=== PATIENT | male | born 1970 | race Caucasian/White ===

== ENCOUNTER 2024-12-14 11:34 | Emergency (ER) | payer OTHER, SELFPAY ==
[2024-12-14 11:39] VITALS: BP 200/85; PULSE 83; RESP 16; TEMP 36.8; O2SAT 97; BMI 41.8
--- NOTE | 2024-12-14 12:08 | DI.RAD.S_ITS ---
PROCEDURE: XR CHEST 1V INDICATIONS: chest pain TECHNIQUE: One view of the chest was acquired. COMPARISON: None. FINDINGS: Surgical changes and devices: None. Lungs and pleura: Lungs are clear. No pleural effusions or pneumothorax. Mediastinum: Mediastinal contours appear normal. Heart size is normal. Bones and chest wall: No suspicious bony lesions. Overlying soft tissues appear unremarkable. IMPRESSION: No acute cardiopulmonary abnormality is seen. Approved by: Vince Moreno M.D. on 12/14/2024 at 12:30
--- NOTE | 2024-12-14 12:13 | ED_ITS ---
HPI - General Adult General Chief complaint: Diabetic Problem Stated complaint: High blood sugar Time Seen by Provider: 12/14/24 12:08 History of Present Illness HPI narrative: Patient is a 54-year-old male without known medical problems does not have a doctor presenting to day with hypertension and hyperglycemia. He is working over at the [employer] voiced that he did not feel well last night. He just felt a little bit off they checked his glucose it was 350. Today he went to work and his blood pressure was high and was sent over here. He was noted to be hypertensive with a systolic greater than 200. He denies any sort of chest pain shortness of breath nausea or vomiting. He has no fever or chills. He denies any polydipsia or polyuria, glucose in triage he was 270. He denies any tobacco use but admits to drinking 2 alcoholic beverages daily. Related Data Previous Rx's Medication Instructions Recorded lisinopril 10 mg tablet 10 mg PO DAILY #30 tabs 12/14/24 metformin 500 mg tablet 500 mg PO BID #60 tabs 12/14/24 Allergies Allergy/AdvReac Type Severity Reaction Status Date / Time Penicillins Allergy Verified 12/14/24 12:18 Exam Initial Vital Signs Initial Vital Signs: Vital Signs Temperature 98.2 F 12/14/24 11:39 Pulse Rate 83 12/14/24 11:39 Respiratory Rate 16 12/14/24 11:39 Blood Pressure 200/85 H 12/14/24 11:39 Pulse Oximetry 97 12/14/24 11:39 Oxygen Delivery Method Room Air 12/14/24 11:39 GENERAL: Awake alert well-appearing 54-year-old male and in no acute distress. HEENT: Head atraumatic,EOMI, pupils reactive, face symmetric, moist mucous membranes CARDIOVASCULAR: Regular rate and rhythm without murmurs, rubs or gallops. RESPIRATORY: Breath sounds equal bilaterally, no wheezes rales or rhonchi. ABDOMEN: Soft, nontender. Normoactive bowel sounds all 4 quadrants. No guarding or rebound. EXTREMITIES: Normal range of motion, no clubbing or edema. Neurovascularly intact NEUROLOGICAL: Alert and oriented x4.Normal gait and speech. Cranial nerves II through XII grossly intact. SKIN: Warm, dry, no laceration, no petechiae, no rashes or lesions. Course Orders Ordered: ED Orders 12/14/24 12:00 A1C [Hemoglobin A1C% w Est Avg Glu] Stat Complete Blood Count AUTO DIFF Stat Comprehensive Metabolic Panel Stat Lipase Stat Troponin & CK Cardiac Panel Stat 12/14/24 12:08 XR chest 1V Stat EKG-12 Lead Stat 12/14/24 12:32 Urine Microscopic Stat Vital Signs Vital signs: Vital Signs - 8 hr 12/14/24 11:39 12/14/24 12:29 12/14/24 12:31 Temperature 98.2 F Pulse Rate 83 Respiratory Rate 16 Blood Pressure 200/85 H 196/102 H 187/100 H Pulse Oximetry 97 Oxygen Delivery Method Room Air 12/14/24 12:32 12/14/24 13:00 12/14/24 13:00 Temperature Pulse Rate 75 69 Respiratory Rate 23 17 Blood Pressure 191/93 H Pulse Oximetry Oxygen Delivery Method Medical Decision Making Lab Data 12/14/24 12:00 12/14/24 12:00 Labs: Lab Results 12/14/24 12/14/24 Range/Units 12:00 12:32 WBC 6.0 (4.5-11.0) X10^3/uL RBC 5.14 (4.5-5.9) X10^6/uL Hgb 15.7 (13.5-17.5) g/dL Hct 45.3 (41-53) % MCV 88.2 (80-100) fL MCH 30.5 (26-34) PG MCHC 34.6 (30-36) % RDW 13.6 (11.6-14.8) % Plt Count 145 L (150-400) X10^3/uL Neut % (Auto) 56.4 (50-75) % Lymph % (Auto) 32.7 (25-40) % [place] % (Auto) 9.4 (3-14) % Eos % (Auto) 1.1 L (2-4) % Baso % (Auto) 0.4 (0-2) % Neut # (Auto) 3400 (9199-9878) /uL Lymph # (Auto) 2000 (0425-7290) /uL [place] # (Auto) 600 (0-900) /uL Eos # (Auto) 100 (0-450) /uL Baso # (Auto) 0 (0-100) /uL Sodium 134 L (137-145) mmol/L Potassium 4.0 (3.4-5.1) mmol/L Chloride 98 (98-107) mmol/L Carbon Dioxide 24 (22-32) mmol/L BUN 15 (9-20) mg/dL Creatinine 0.79 (0.66-1.25) mg/dL Estimated GFR > 60 (>60) mL/min BUN/Creatinine Ratio 19.0 (6-22) Glucose 270 H (70-100) mg/dL Hemoglobin A1c 10.9 H (4.0-6.0) % Calcium 9.2 (8.4-10.2) mg/dL Total Bilirubin 1.0 (0.2-1.3) mg/dL AST 28 (17-59) IU/L ALT 25 (<50) IU/L Alkaline Phosphatase 68 (38-126) U/L Total Creatine Kinase 97 (55-170) U/L Troponin I < 0.012 (0.01-0.034) ng/mL Total Protein 7.6 (6.3-8.2) g/dL Albumin 4.4 (3.5-5.0) g/dL Globulin 3.2 (1.7-4.1) g/dL Albumin/Globulin Ratio 1.4 (1.0-2.8) Lipase 28 (23-300) U/L Urine RBC 0-1/hpf (0-5/HPF) Urine WBC 0-1/hpf (0-5/HPF) Ur Squamous Epith Cells 1-5 /hpf (0-5/HPF) Urine Bacteria None seen (None) Ur Culture Indicated? Cult not indicated Vol Urine Centrifuged 10ml (spun) Urine Dip Bedside Urine Glucose 1000 mg/dl Bedside Urine Bilirubin - Negative Bedside Urine Ketone - Negative Urine Specific [place] 1.020 Bedside Urine Occult Blood +/- Bedside Urine pH 6.0 Bedside Urine Protein + 30 Bedside Urine Urobilinogen - Negative Bedside Urine Nitrite - Negative Bedside Urine Leukocytes - Negative Esterase Point of care testing: Urine Dip Bedside Urine Glucose 1000 mg/dl Bedside Urine Bilirubin - Negative Bedside Urine Ketone - Negative Urine Specific [place] 1.020 Bedside Urine Occult Blood +/- Bedside Urine pH 6.0 Bedside Urine Protein + 30 Bedside Urine Urobilinogen - Negative Bedside Urine Nitrite - Negative Bedside Urine Leukocytes - Negative Esterase Imaging Data Chest x-ray: Radiologist's Impression: PROCEDURE: XR CHEST 1V INDICATIONS: chest pain TECHNIQUE: One view of the chest was acquired. COMPARISON: None. FINDINGS: Surgical changes and devices: None. Lungs and pleura: Lungs are clear. No pleural effusions or pneumothorax. Mediastinum: Mediastinal contours appear normal. Heart size is normal. Bones and chest wall: No suspicious bony lesions. Overlying soft tissues appear unremarkable. IMPRESSION: No acute cardiopulmonary abnormality is seen. Approved by: Vince Moreno M.D. on 12/14/2024 at 12:30 ECG Data Attestation: I personally reviewed and interpreted this ECG as follows: Prior ECG tracings: not available for review Interpretation: Normal sinus rhythm rate 76 GA interval 192 QRS [address] changes no T- wave inversions MDM Narrative Medical decision making narrative: Patient is 54-year-old male presenting today with at the request of his work. He really has no symptoms. He was found to be hyperglycemic glucose of 270 and hemoglobin A1c of 10.9. No evidence of DKA. He was found to be hypertensive without signs of end-organ damage in his asymptomatic. Blood work has been reviewed troponin negative Chest x-ray no acute cardiopulmonary process EKGs reviewed no ischemia At this time we will go ahead and start patient on metformin and lisinopril. He has no primary care provider. I have discussed with them the importance of getting a PCP. Blood pressure is noted to be quite elevated. Also discussed with him side effects of lisinopril including angioedema, if this should happen he needs to return to the ED immediately. He understands. Discharge Plan Departure Patient Disposition: Home Clinical Impression: Diabetes mellitus Instructions: DI for Diabetes Type 2 Activity Restrictions/Additional Instructions: *You have been diagnosed with diabetes hemoglobin A1c 10.9 *What to do: You must get a primary care provider you will need more education and workup *Continue to take medications as directed Metformin 500 mg twice a day Lisinopril 10 mg once a day-this can cause lip swelling tongue swelling if this happened to need to return to the emergency department immediately *Follow up with your primary care provider in 2-3 days or call [phone] *Return to ER if you should have increasing chest pain shortness of breath weakness passing out [or] any new, worsening or concerning symptoms Prescriptions: New metformin 500 mg tablet 500 mg PO BID Qty: 60 0RF lisinopril 10 mg tablet 10 mg PO DAILY Qty: 30 0RF Stand Alone Forms: Patient Portal/API/Survey, Work Release Note
[2024-12-14 12:20] LABS: Add Manual Diff / Slide Review NO; Basophils Absolute Auto 0 /uL (0-100); Basophils Percent Auto 0.4 % (0-2); Eosinophils Absolute Auto 100 /uL (0-450); Eosinophils Percent Auto 1.1 % (2-4); Hematocrit 45.3 % (41-53); Hemoglobin 15.7 g/dL (13.5-17.5); Lymphocytes Absolute Auto 2000 /uL (1100-4500); Lymphocytes Percent Auto 32.7 % (25-40); Mean Corpuscular HGB Conc 34.6 % (30-36); Mean Corpuscular Hemoglobin 30.5 PG (26-34); Mean Corpuscular Volume 88.2 fL (80-100); Monocytes Absolute Auto 600 /uL (0-900); Monocytes Percent Auto 9.4 % (3-14); Neutrophils Absolute Auto 3400 /uL (1500-7000); Neutrophils Percent Auto 56.4 % (50-75); Platelet Count 145 X10^3/uL (150-400); Red Blood Cell Count 5.14 X10^6/uL (4.5-5.9); Red Cell Distribution Width 13.6 % (11.6-14.8)
[2024-12-14 12:25] LABS: Alanine Aminotransferase 25 IU/L (<50); Albumin 4.4 g/dL (3.5-5.0); Albumin Globulin Ratio 1.4 (1.0-2.8); Alkaline Phosphatase 68 U/L (38-126); Aspartate Aminotransferase 28 IU/L (17-59); Blood Urea Nitrogen 15 mg/dL (9-20); Calcium 9.2 mg/dL (8.4-10.2); Carbon Dioxide 24 mmol/L (22-32); Chloride 98 mmol/L (98-107); Creatine Kinase 97 U/L (55-170); Estimated Glomerular Filt Rate > 60 mL/min (>60); Globulin 3.2 g/dL (1.7-4.1); Glucose 270 mg/dL (70-100); HEMOLYSIS < 15 (0-50); Lipase 28 U/L (23-300); Sodium 134 mmol/L (137-145); Total Protein 7.6 g/dL (6.3-8.2)
--- NOTE | 2024-12-14 12:27 | EKG_ITS ---
[address] [address] Test Date: 2024-12-14 Pat Name: Brandon Morfin Department: Room: Gender: Male [employer] Operator: CHRISTY : 1970 Requested By: Order Number: [id number] Reading MD: Hector Armstrong Measurements Intervals [place] Rate: 76 P: 16 [place]: 192 QRS: -8 QRSD: 76 T: 3 QT: 386 QTc: 434 Interpretive Statements Normal sinus rhythm Inferior infarct , age undetermined Electronically Signed On 12-18-2024 20:09:13 PDT by Hector Armstrong
[2024-12-14 12:29] VITALS: BP 196/102
[2024-12-14 12:31] VITALS: BP 187/100
[2024-12-14 12:32] VITALS: PULSE 75; RESP 23
[2024-12-14 12:36] LABS: Hemoglobin A1C% w Est Avg Glu 10.9 % (4.0-6.0)
[2024-12-14 12:37] LABS: Troponin I < 0.012 ng/mL (0.01-0.034)
[2024-12-14 12:50] LABS: Urine Volume 10mL (spun)
[2024-12-14 12:51] LABS: Bacteria Urine None Seen; Culture Indicated Urine Cult Not Indicated; RBC Urine 0-1/HPF (0-5/HPF); Squamous Epithelial Cell Urine 1-5 /HPF (0-5/HPF); WBC Urine 0-1/HPF (0-5/HPF)
[2024-12-14 13:00] VITALS: BP 191/93; PULSE 69; RESP 17
== END 2024-12-14 13:21 | disposition home or self-care (01) ==
PROVIDERS: Emergency Provider Emergency Medicine
DX: E11.65 Type 2 diabetes mellitus with hyperglycemia (principal); I10 Essential (primary) hypertension
CPT/HCPCS: 36415; 71045; 80053; 81003; 81015; 82550; 83036; 83690; 84484; 85025; 93005; 99283; 99284